=== PATIENT | female | born 1965 ===

== ENCOUNTER 2025-05-11 05:28 | Day surgery (SDC) | payer OTHER ==
[2025-05-04 07:55] LABS: BASO % 0.7 % (0.1-1.2); EOS # 0.08 (0.04-0.54); EOS % 1.5 % (0.7-7.0); HEMOGLOBIN 14.2 g/dL (11.2-15.7); LYMPH # 1.76 (1.18-3.74); LYMPH % 32.5 % (19.3-53.1); MEAN CORPUSCULAR HEMOGLOBIN 28.1 pg (25.6-32.2); MONO % 11.1 % (4.7-12.5); NEUT # 2.92 (1.56-6.13); PLATELET COUNT 184 K/uL (163-369); RED BLOOD COUNT 5.05 M/uL (3.93-5.22); RED CELL DISTRIBUTION WIDTH 13.2 % (11.6-14.4)
[2025-05-04 07:56] LABS: PH,URINE 5.5 (5.0-8.0); URINE APPEARANCE Clear; URINE BILIRRUBIN Negative (NEGATIVE); URINE BLOOD Negative; URINE COLOR Yellow; URINE GLUCOSE Negative (NEGATIVE); URINE KETONE Trace (NEGATIVE); URINE LEUKOCYTE Negative; URINE NITRATE Negative; URINE PROTEIN Negative (NEGATIVE)
[2025-05-04 07:59] LABS: URINE BACTERIA 20.8 uL (0.0-1933); URINE EPITHELIAL CELLS 1.5 uL (0.0-38.8); URINE RBC 8.6 uL (0.0-20.8); URINE WBC 3.3 uL (0.0-23.2)
[2025-05-04 08:03] LABS: URINE CAST 0.44 uL (0.0-1.40)
[2025-05-04 08:07] VITALS: BP 122/82
[2025-05-04 08:26] LABS: ALBUMIN 3.9 gm/dL (3.4-5.0); BILIRUBIN TOTAL 0.37 mg/dL (0.3-1.2); CALCIUM 9.4 mg/dL (8.5-10.1); CREATININE SERUM 0.71 mg/dL (0.55-1.02); GFR 83.97; GLOBULINA 2.9 G/DL (2.4-3.5); POTASSIUM 4.89 mEq/L (3.5-5.1); TOTAL PROTEIN 6.8 gm/dL (6.4-8.2)
[2025-05-04 08:40] LABS: INR 0.96; PARTIAL THROMBOPLASTIN TIME 25.4 SECONDS (22.0-34.0); PROTHROMBIN TIME 10.5 SECONDS (9.0-11.5)
[~2025-05-11] VITALS: Ht 182.9 cm; Wt 122.5 kg
[~2025-05-11 05:28] MED LIST: AMBIEN10 MG; ATORVASTATIN CA10 MG; METFORMIN HCL500 M3; ZESTRIL2.5 MG
[2025-05-11] MEDS ORDERED: CEFAZOLIN SODIUM 1,000 MG VIAL ONE (07:58)
[2025-05-11] MEDS ORDERED: BUPIVACAINE HCL/MPF 0.5% 30ML VIAL ONE (09:28)
[2025-05-11] MEDS ORDERED: KETOROLAC TROMETHAMINE 30 MG VIAL ONE (09:28)
== END 2025-05-11 14:40 | disposition home or self-care (01) ==
LOC: CIR.AMB 05:28
PROVIDERS: ATTEND Orthopaedic Surgery
DX: S43.211A Anterior subluxation of right sternoclavicular joint, initial encounter (principal)